=== PATIENT | female | born 1990 | race Two or more races ===

== ENCOUNTER → 2016-06-25 | Outpatient (CLI) | payer MEDICAID ==
[2016-06-25 16:43] LABS: Basophils # (auto) 0 uL; Basophils % (auto) 0.4 % (0.0-2.0); DEFINITIVE VIEW TRANSMISSION; Eosinophils # (auto) 0.1 uL; Eosinophils % (auto) 1.1 % (0.0-7.0); Hematocrit 28.5 % (36.0-46.0); Hemoglobin 9.3 g/dL (12.2-16.2); Lymphocytes % (auto) 18.6 % (10.0-50.0); Mean Corpuscular Hgb Conc. 32.8 g/dL (32.0-36.0); Mean Corpuscular Volume 76.3 fL (80.0-100.0); Mean Platelet Volume 7.4 fL (7.4-10.4); Monocytes # (auto) 0.8 uL; Monocytes % (auto) 7.6 % (0.0-12.0); Neutrophils # (auto) 7.7 uL; Neutrophils % (auto) 72.3 % (37.0-80.0); Platelet Count (auto) 308 10^3/uL (140-450); Red Cell Distribution Width 15.8 % (11.6-16.0); White Blood Cell 10.6 10^3/uL (4.4-10.8)
[2016-06-25 19:08] LABS: Hypochromia Slight; Platelet Estimate Adequate
== END | disposition home or self-care (01) ==
LOC: LAB 15:40
PROVIDERS: ATTEND Obstetrics & Gynecology
DX: Z11.3 Encounter for screening for infections with a predominantly sexual mode of transmission (principal); Z34.80 Encounter for supervision of other normal pregnancy, unspecified trimester; N76.0 Acute vaginitis
CPT/HCPCS: 36415; 83036; 85025; 85049; 87081

== ENCOUNTER 2016-06-30 14:15 | Observation (INO) | payer MEDICAID | END 2016-06-30 15:30 | disposition home or self-care (01) | DRG 566 | LOC: LDRP 14:15 | PROVIDERS: ADMIT Specialist; ATTEND Specialist | DX: O42.90 Premature rupture of membranes, unspecified as to length of time between rupture and onset of labor, unspecified weeks of gestation (principal); Z87.891 Personal history of nicotine dependence; Z3A.00 Weeks of gestation of pregnancy not specified | CPT/HCPCS: 59025; 81002; G0378 ==

== ENCOUNTER 2016-07-02 15:45 | Observation (INO) | payer MEDICAID ==
[2016-07-02 17:21] LABS: Urine Bilirubin Negative (Negative); Urine Blood Negative /uL (Negative); Urine Color Yellow (Yellow); Urine Glucose Normal (Normal); Urine Ketone Negative (Negative); Urine Mucus FEW (None Seen); Urine Nitrite Negative (Negative); Urine RBC 5 /hpf (0 - 4); Urine Squamous Epithelial Cell MANY /hpf (<5); Urine pH 6.5 (5.0-8.0)
== END 2016-07-02 17:35 | disposition home or self-care (01) | DRG 566 ==
LOC: LDRP 15:45
PROVIDERS: ADMIT Obstetrics & Gynecology; ATTEND Obstetrics & Gynecology
DX: O36.8190 Decreased fetal movements, unspecified trimester, not applicable or unspecified (principal); O40.9XX0 Polyhydramnios, unspecified trimester, not applicable or unspecified; Z87.891 Personal history of nicotine dependence; Z3A.00 Weeks of gestation of pregnancy not specified
CPT/HCPCS: 59025; 76818; 81001; 81002; G0378

== ENCOUNTER 2016-07-06 12:30 | Observation (INO) | payer MEDICAID | END 2016-07-06 13:55 | disposition home or self-care (01) | DRG 566 | LOC: LDRP 12:30 | PROVIDERS: ADMIT Specialist; ATTEND Specialist | DX: O24.419 Gestational diabetes mellitus in pregnancy, unspecified control (principal); Z87.891 Personal history of nicotine dependence; Z3A.36 36 weeks gestation of pregnancy | CPT/HCPCS: 59025; 76818; 81002; G0378 ==

== ENCOUNTER → 2016-07-07 | Outpatient (CLI) | payer MEDICAID | END | disposition home or self-care (01) | LOC: LAB 14:09 | PROVIDERS: ATTEND Obstetrics & Gynecology | DX: Z34.80 Encounter for supervision of other normal pregnancy, unspecified trimester (principal); O99.810 Abnormal glucose complicating pregnancy | CPT/HCPCS: 36415; 83036; 87086 ==

== ENCOUNTER 2016-07-09 12:40 | Observation (INO) | payer MEDICAID | END 2016-07-09 14:30 | disposition home or self-care (01) | DRG 566 | LOC: LDRP 12:40 | PROVIDERS: ADMIT Obstetrics & Gynecology; ATTEND Obstetrics & Gynecology | DX: O62.9 Abnormality of forces of labor, unspecified (principal); Z3A.37 37 weeks gestation of pregnancy; Z87.891 Personal history of nicotine dependence | CPT/HCPCS: 59025; 76818; 81002; G0378 ==

== ENCOUNTER 2017-02-22 14:19 | Emergency (ER) | payer MEDICAID ==
[~2017-02-22] VITALS: Ht 152.4 cm; Wt 104.8 kg
[2017-02-22 17:02] VITALS: BP 114/74
[2017-02-22] MEDS ORDERED: IBUPROFEN 600 MG TAB PO ONE (19:30)
== END 2017-02-22 20:05 | disposition home or self-care (01) ==
LOC: ER 14:26
DX: S91.201A Unspecified open wound of right great toe with damage to nail, initial encounter (principal); S90.111A Contusion of right great toe without damage to nail, initial encounter; W22.8XXA Striking against or struck by other objects, initial encounter; Y93.89 Activity, other specified; Y99.8 Other external cause status; Y92.89 Other specified places as the place of occurrence of the external cause; Z87.440 Personal history of urinary (tract) infections
CPT/HCPCS: 73660; 81025

== ENCOUNTER 2017-09-19 21:07 | Emergency (ER) | payer MEDICAID ==
[~2017-09-19] VITALS: Ht 160 cm; Wt 104.8 kg
[2017-09-19 21:14] VITALS: BP 122/82
[2017-09-19 22:09] LABS: Urine Bacteria NONE SEEN /hpf (None Seen); Urine Blood 1+ /uL (Negative); Urine Mucus FEW (None Seen); Urine Specific Gravity 1.023 (1.001-1.035); Urine WBC <1 /hpf (0 - 5)
== END 2017-09-20 00:12 | disposition left against medical advice (07) ==
LOC: ER 21:07
DX: R10.13 Epigastric pain (principal); R11.2 Nausea with vomiting, unspecified; Z53.21 Procedure and treatment not carried out due to patient leaving prior to being seen by health care provider
CPT/HCPCS: 81001; 81025

== ENCOUNTER 2017-10-08 23:44 | Emergency (ER) | payer MEDICAID ==
[~2017-10-08] VITALS: Ht 152.4 cm; Wt 100.2 kg
[2017-10-09 00:03] VITALS: BP 133/79
[2017-10-09 01:06] LABS: Basophils # (auto) 0.1 uL; Basophils % (auto) 0.5 % (0.0-2.0); Eosinophils # (auto) 0.1 uL; Lymphocytes # (auto) 2.4 uL; Monocytes # (auto) 0.7 uL; White Blood Cell 13.1 10^3/uL (4.4-10.8)
[2017-10-09 01:07] LABS: Urine Bacteria NONE SEEN /hpf (None Seen); Urine Blood 2+ /uL (Negative); Urine Specific Gravity 1.026 (1.001-1.035); Urine WBC 324 /hpf (0 - 5); Urine WBC Clumps PRESENT /hpf (None Seen)
[2017-10-09 01:08] LABS: Hematocrit 35.7 % (36.0-46.0); Hemoglobin 11.9 g/dL (12.2-16.2); Lymphocytes % (auto) 18.3 % (10.0-50.0); Mean Corpuscular Hemoglobin 26.6 pg (28.0-32.0); Mean Corpuscular Hgb Conc. 33.5 g/dL (32.0-36.0); Mean Corpuscular Volume 79.4 fL (80.0-100.0); Monocytes % (auto) 5.1 % (0.0-12.0); Neutrophils # (auto) 9.9 uL; Neutrophils % (auto) 75.1 % (37.0-80.0); Platelet Count (auto) 338 10^3/uL (140-450); Red Cell Distribution Width 13.7 % (11.8-14.3)
[2017-10-09 01:28] LABS: Albumin 3.8 g/dL (3.4-5.0); BUN/Creatinine Ratio 20.6; Calcium 8.9 mg/dL (8.5-10.1); Potassium 3.9 mmol/L (3.5-5.1)
[2017-10-09 01:31] LABS: Bilirubin, Total 0.4 mg/dL (0.2-1.0); Total Protein 7.8 g/dL (6.4-8.2)
== END 2017-10-09 04:42 | disposition left against medical advice (07) ==
LOC: ER 23:47
DX: R10.11 Right upper quadrant pain (principal); Z53.21 Procedure and treatment not carried out due to patient leaving prior to being seen by health care provider
CPT/HCPCS: 36415; 74176; 80053; 81001; 82150; 83690; 84702; 85025

== ENCOUNTER 2017-10-09 18:35 | Emergency (ER) | payer MEDICAID ==
[~2017-10-09] VITALS: Ht 165.1 cm; Wt 100.2 kg
[2017-10-09 18:48] VITALS: BP 108/67
== END 2017-10-10 01:13 | disposition left against medical advice (07) ==
LOC: ER 18:35
DX: R10.11 Right upper quadrant pain (principal); Z53.21 Procedure and treatment not carried out due to patient leaving prior to being seen by health care provider